=== PATIENT | female | born 1990 | race Caucasian/White ===

== ENCOUNTER → 2016-08-04 | Outpatient (CLI) | payer OTHER ==
[~2016-08-04] MED LIST: CETI10TA10 PO; ESCI10TA17 PO; PEDICHW53; PREN1TAB29
[2016-08-04 11:49] LABS: GTGD 50 Grams
[2016-08-05 14:49] LABS: AFP CONCENTRATION 26.1 NG/ML; AFP MULTIPLE OF MEDIAN 0.84; AFPTS INSULIN DEP DIABETIC? NO; AFPTS MATERNAL WT 160 LBS; ALPHA-FETOPROTEIN RACE CAUCASIAN=W; ESTRIOL MULTIPLE OF MEDIAN 0.77; HISTORY OF NTD NO; INHIBIN A 133 PG/ML; REPEAT SAMPLE? NO; hCG MULTIPLE OF MEDIAN 0.73
== END | disposition home or self-care (01) ==
LOC: C.LAB1850 09:45
PROVIDERS: ATTEND Obstetrics & Gynecology
DX: Z34.83 Encounter for supervision of other normal pregnancy, third trimester (principal)

== ENCOUNTER → 2016-10-27 | Outpatient (CLI) | payer OTHER ==
[2016-10-27 10:09] LABS: HEMATOCRIT 33.7 % (37-47)
[2016-10-27 10:56] LABS: GTGD 50 Grams
[2016-10-27 12:01] LABS: URINE APPEARANCE CLEAR (CLEAR); URINE BILIRUBIN NEG (NEG); URINE COLOR YELLOW; URINE NITRITE NEG (NEG); URINE SPECIFIC GRAVITY 1.011 (1.000-1.030); UROBILINOGEN NEG (NEG)
[2016-10-27 12:05] LABS: MANUAL MICROSCOPIC REQUIRED? NO; REVIEW REQ? NO
== END | disposition home or self-care (01) ==
LOC: C.LAB1850 09:16
PROVIDERS: ATTEND Obstetrics & Gynecology
DX: Z34.83 Encounter for supervision of other normal pregnancy, third trimester (principal)

== ENCOUNTER 2016-12-19 16:32 | Outpatient (CLI) | payer OTHER ==
[~2016-12-19] VITALS: Ht 165.1 cm; Wt 91.2 kg
[~2016-12-19 16:32] MED LIST changes: -CETI10TA10 PO; -ESCI10TA17 PO; -PREN1TAB29
[2016-12-19 17:44] LABS: BASO % 0.2 %; BASO ABS # 0.02 K/uL (0-0.2); HEMATOCRIT 30.5 % (37-47); IG% 0.7 %; LYMPH % 18.7 %; LYMPH ABS # 1.94 K/uL (1.2-3.4); MEAN CELL VOLUME 73.3 fL (80-100); MEAN CORPUSCULAR HEMOGLOBIN 24.3 pg (25-34); MEAN PLATELET VOLUME 11.1 fL (7.4-10.4); MONO % 6.9 %; NEUT % 72.5 %; PLATELET COUNT 243 K/uL (130-400); RED BLOOD COUNT 4.16 M/uL (4.2-5.4)
[2016-12-19 17:54] LABS: MEAN CORPUSCULAR HGB CONC 33.1 g/dl (32-36)
[2016-12-19 18:08] LABS: COMPLETE YES; SPHEROCYTE 1+
[2016-12-19 18:15] VITALS: Ht 165.1 cm; Wt 91.2 kg
[2016-12-19 18:35] LABS: ALKALINE PHOSPHATASE 122 U/L (45-117); ALT/SGPT 17 U/L (12-78); AST/SGOT 28 U/L (15-37); BLOOD UREA NITROGEN 9 mg/dl (7-18); CALCIUM 8.1 mg/dl (8.5-10.1); CARBON DIOXIDE 21 mmol/L (21-32); CHLORIDE 107 mmol/L (98-107); CREATININE 0.71 mg/dl (0.60-1.20); GLUCOSE 80 mg/dl (70-99); POTASSIUM 3.7 mmol/L (3.5-5.1); SODIUM 137 mmol/L (136-145); URIC ACID 6.4 mg/dl (2.6-7.2)
[2016-12-19 19:13] LABS: URINE PROTIEN/CREAT RATIO 0.1 (0-0.2); URINE TOTAL PROTEIN 5.7 mg/dl (0-11.9)
== END 2016-12-19 19:01 | disposition home or self-care (01) ==
LOC: C.LD 16:32 → C.OPB 16:32
PROVIDERS: ATTEND Obstetrics & Gynecology
DX: O16.3 Unspecified maternal hypertension, third trimester (principal); Z3A.35 35 weeks gestation of pregnancy

== ENCOUNTER → 2016-12-20 | Outpatient (CLI) | payer OTHER ==
[~2016-12-20] MED LIST changes: +CETI10TA10 PO; +ESCI10TA17 PO; +PREN1TAB29
[2016-12-20 18:58] LABS: PATIENT HEIGHT 165.1 cm
[2016-12-20 19:24] LABS: CREATININE 0.71 mg/dl (0.6-1.2)
[2016-12-20 19:43] LABS: URINE TOTAL PROTEIN 5.9 mg/dl (0-11.9)
== END | disposition home or self-care (01) ==
LOC: C.LABSPEC 18:53
PROVIDERS: ATTEND Obstetrics & Gynecology
DX: O13.3 Gestational [pregnancy-induced] hypertension without significant proteinuria, third trimester (principal)

== ENCOUNTER → 2016-12-22 | Outpatient (CLI) | payer OTHER | END | disposition home or self-care (01) | LOC: C.LABSPEC 17:44 | PROVIDERS: ATTEND Obstetrics & Gynecology | DX: Z34.83 Encounter for supervision of other normal pregnancy, third trimester (principal) ==

== ENCOUNTER → 2016-12-26 | Outpatient (CLI) | payer OTHER ==
[2016-12-26 17:46] LABS: HEMATOCRIT 32.5 % (37-47); MEAN CELL VOLUME 73.4 fL (80-100); MEAN CORPUSCULAR HEMOGLOBIN 24.2 pg (25-34); MEAN CORPUSCULAR HGB CONC 32.9 g/dl (32-36); MEAN PLATELET VOLUME 12.6 fL (7.4-10.4); PLATELET COUNT 254 K/uL (130-400); RED BLOOD COUNT 4.43 M/uL (4.2-5.4); WHITE BLOOD COUNT 9.55 K/uL (4.8-10.8)
[2016-12-26 18:29] LABS: ALKALINE PHOSPHATASE 141 U/L (45-117); ALT/SGPT 19 U/L (12-78); AST/SGOT 25 U/L (15-37)
== END | disposition home or self-care (01) ==
LOC: C.LAB1850 17:03
PROVIDERS: ATTEND Obstetrics & Gynecology
DX: O13.3 Gestational [pregnancy-induced] hypertension without significant proteinuria, third trimester (principal); Z3A.00 Weeks of gestation of pregnancy not specified

== ENCOUNTER 2016-12-29 15:39 | Inpatient (IN) | payer OTHER ==
[~2016-12-29] VITALS: Ht 165.1 cm; Wt 93.9 kg
[~2016-12-29 15:39] MED LIST changes: -CETI10TA10 PO; -ESCI10TA17 PO; -PREN1TAB29
[2016-12-29] MEDS ORDERED: LACTATED RINGER'S 1000ML 1,000 ML IV SCH (16:53)
[2016-12-29] MEDS ORDERED: LACTATED RINGER'S 1000ML 1,000 ML IV PRN (16:53)
[2016-12-29] MEDS ORDERED: ACETAMINOPHEN 650 MG SUPP PR STA (16:56)
[2016-12-29] MEDS ORDERED: LABETALOL HCL IV 5 MG/ML 20ML IV PRN (17:00)
[2016-12-29] MEDS ORDERED: MAGNESIUM SULFATE / WTR 1,000 ML IV SCH (17:35)
[2016-12-29] MEDS ORDERED: MAGNESIUM SULFATE 4GM / WTR 100ML IV ONE (17:45)
[2016-12-29] MEDS ORDERED: ACETAMINOPHEN 325 MG TAB ONE (17:55)
[2016-12-29 18:01] LABS: BASO % 0.2 %; BASO ABS # 0.02 K/uL (0-0.2); EOS % 1.4 %; HEMATOCRIT 32.2 % (37-47); IG% 0.7 %; LYMPH % 19.7 %; MEAN CORPUSCULAR HEMOGLOBIN 23.1 pg (25-34); MEAN CORPUSCULAR HGB CONC 31.7 g/dl (32-36); MEAN PLATELET VOLUME 12.6 fL (7.4-10.4); MONO % 6.3 %; NEUT % 71.7 %; PLATELET COUNT 245 K/uL (130-400); RED BLOOD COUNT 4.41 M/uL (4.2-5.4); WHITE BLOOD COUNT 12.16 K/uL (4.8-10.8)
[2016-12-29] MEDS ORDERED: ACETAMINOPHEN 325 MG TAB PO STA (18:01)
[2016-12-29 18:38] LABS: ANISOCYTOSIS PRESENT; COMPLETE YES; EOSINOPHIL % 0.9 %; LYMPH ABS # 1.91 K/uL (1.2-3.4); LYMPHOCYTE % 15.7 %; MYELOCYTE % 0.9 %; NEUTROPHILS % 76.4 %
[2016-12-29 18:48] LABS: ALB/GLOB RATIO 0.6 (0.9-2); ALKALINE PHOSPHATASE 138 U/L (45-117); ALT/SGPT 16 U/L (12-78); AST/SGOT 26 U/L (15-37); BLOOD UREA NITROGEN 10 mg/dl (7-18); BUN/CREATININE RATIO 14.4 (10-20); CALCIUM 8.3 mg/dl (8.5-10.1); CARBON DIOXIDE 22 mmol/L (21-32); CHLORIDE 107 mmol/L (98-107); CREATININE 0.69 mg/dl (0.60-1.20); GLUCOSE 57 mg/dl (70-99); POTASSIUM 4.4 mmol/L (3.5-5.1); SODIUM 137 mmol/L (136-145)
[2016-12-29] MEDS ORDERED: CETI10TA10 PO (19:51)
[2016-12-29] MEDS ORDERED: PREN1TAB29 (19:51)
[2016-12-29] MEDS ORDERED: ESCI10TA17 PO (19:51)
[2016-12-29] MEDS ORDERED: BUPIVACAINE 0.25% 30 ML VIAL ONE (20:02)
[2016-12-29] MEDS ORDERED: FENTANYL 2MCG/ML ROPIV 1.25MG/ML 100ML BAG EPI ONE (20:02)
[2016-12-29] MEDS ORDERED: EpHEDrine SULFATE INJ 50 MG/ML AMP ONE (20:02)
[2016-12-29] MEDS ORDERED: FENTANYL CITRATE INJ 50 MCG/1 ML 2 ML VIAL ONE (20:03)
[2016-12-29] MEDS ORDERED: LACTATED RINGER'S 1000ML 500 ML IV PRN ×2 (20:26→21:07)
[2016-12-29] MEDS ORDERED: OXYTOCIN 30 UNITS/500ML NSS IV PRN (20:30)
[2016-12-29] MEDS ORDERED: NALOXONE HCL INJ 1 MG in SODIUM CHLORIDE 0.9% 1000ML 1,000 ML IV PRN ×4 (21:07)
[2016-12-29] MEDS ORDERED: NALBUPHINE HCL INJ 10 MG/ML AMP IV PRN (21:15)
[2016-12-29] MEDS ORDERED: DiphenhydrAMINE HCL 50 MG/ML VIAL IV PRN (21:15)
[2016-12-29] MEDS ORDERED: PROMETHAZINE HCL INJ 25 MG in SODIUM CHLORIDE 0.9% 50ML 50 ML IV PRN (21:15)
[2016-12-29] MEDS ORDERED: ONDANSETRON INJ 2 MG/ML 2 ML VIAL IV PRN (21:15)
[2016-12-29] MEDS ORDERED: NALOXONE HCL INJ 0.4 MG/1 ML VIAL/CARP IV PRN (21:15)
[2016-12-29] MEDS ORDERED: FENTANYL 2MCG/ML ROPIV 1.25MG/ML 100ML BAG EPI PRN (21:15)
[2016-12-29] MEDS ORDERED: EpHEDrine SULFATE INJ 50 MG/ML AMP IV PRN (21:15)
[2016-12-29] MEDS: ESCITALOPRAM OXALATE 10 MG TAB PO SCH (21:24)
--- NOTE | 2016-12-30 00:55 | Vaginal Delivery Summary ---
Vaginal Delivery Summary Patient dilated to complete and pushed to deliver a viable male infant Apgars 8 and 9 via over intact perineum. Mouth and nose bulb suctioned at the perineum. Shoulders and body delivered with ease. vigorous and crying at .Cord clamped at 30 seconds of life. Infant to maternal abdomen and cord doubly clamped and then cut. Cord blood obtained. Placenta delivered spontaneously and intact, 3 vessel cord. Hemostasis achieved with dilute Pitocin and uterine massage.Bladder drained under sterile conditions for [id number] cc of urine.Small right labial separation reapproximated with 4 -0 Vicryl. EBL 300 cc's. Mother and baby stable in recovery. Plan to continue magnesium sulfate seizure prophylaxis and monitor urine output as well as vital signs.
[2016-12-30] MEDS ORDERED: ACETAMINOPHEN/CODEINE 300/30MG TAB PO PRN ×2 (01:00)
[2016-12-30] MEDS ORDERED: HYDROCORTISONE ACETATE 25 MG SUPP PR PRN (01:00)
[2016-12-30] MEDS ORDERED: ACETAMINOPHEN 325 MG TAB PO PRN (01:00)
[2016-12-30] MEDS ORDERED: SUPERCREAM 0.870 % 15GM JAR EXT PRN (01:00)
[2016-12-30] MEDS ORDERED: OXYTOCIN 30 UNITS/500ML NSS IV PRN (01:00)
[2016-12-30] MEDS ORDERED: LANOLIN OINT EXT PRN ×2 (01:00)
[2016-12-30] MEDS ORDERED: DIPHTHERIA/TETANUS/PERTUSSIS 0.5 ML SYR/VIAL IM. ONE (01:00)
[2016-12-30] MEDS ORDERED: BENZOCAINE 20% AER SPR 82.5 GM CAN EXT PRN (01:00)
[2016-12-30] MEDS ORDERED: OXYTOCIN INJ 20 UNITS in LACTATED RINGER'S 1000ML 1,000 ML IV SCH (01:00)
--- NOTE | 2016-12-30 01:08 | Anesthesia Procedure Note ---
Anesthesia Epidural Removal Nt Date & Time Dec 30, 2016 at 01:08 Vital Signs Pain Intensity: 9.0 Notes Mental Status: alert / awake / arousable, participated in evaluation Nausea / Vomiting: adequately controlled Pain: adequately controlled Airway Patency, RR, SpO2: stable & adequate BP & HR: stable & adequate Hydration State: stable & adequate Neuraxial Anesthesia: was administered Anesthetic Complications: no major complications apparent, pt satisfied with anesthetic care Epidural: removed without complications, with tip intact
[2016-12-30] MEDS: IBUPROFEN 600 MG TAB PO PRN ×5 (03:40→22:05)
[2016-12-30 07:42] LABS: HEMATOCRIT 31.3 % (37-47); MEAN CELL VOLUME 73.3 fL (80-100); MEAN CORPUSCULAR HEMOGLOBIN 23.4 pg (25-34); MEAN CORPUSCULAR HGB CONC 31.9 g/dl (32-36); MEAN PLATELET VOLUME 12.3 fL (7.4-10.4); PLATELET COUNT 208 K/uL (130-400); RED BLOOD COUNT 4.27 M/uL (4.2-5.4); WHITE BLOOD COUNT 14.31 K/uL (4.8-10.8)
[2016-12-30] MEDS: CETIRIZINE HCL 10 MG TAB PO SCH (07:47)
[2016-12-30] MEDS: DOCUSATE SODIUM 100 MG CAP PO SCH ×2 (07:47→20:30)
[2016-12-30 08:15] LABS: BUN/CREATININE RATIO 8.1 (10-20); CALCIUM 7.1 mg/dl (8.5-10.1); CREATININE 0.72 mg/dl (0.60-1.20)
[2016-12-30 08:17] LABS: ALB/GLOB RATIO 0.6 (0.9-2)
[2016-12-30] MEDS ORDERED: NURSING VERBAL MED ORDER ONE (15:15)
[2016-12-30 16:45] VITALS: BP 118/80; PULSE 73; TEMP 36.8; O2SAT 99
[2016-12-30 19:55] VITALS: BP 116/76; PULSE 81; TEMP 36.8; O2SAT 99
[2016-12-30] MEDS: ESCITALOPRAM OXALATE 10 MG TAB PO SCH (20:30)
[2016-12-30 23:10] VITALS: BP 132/88; PULSE 76; TEMP 36.9; O2SAT 99
[2016-12-31 03:20] VITALS: BP 118/79; PULSE 72; TEMP 36.9; O2SAT 97
[2016-12-31] MEDS: IBUPROFEN 600 MG TAB PO PRN ×3 (06:13→19:22)
--- NOTE | 2016-12-31 06:45 | OB/GYN Progress Note ---
SHEARING SHED HAND Progress Note Date of Service Dec 31, 2016. Subjective conversation w/ patient, physical exam, chart review, lab review Ambulation: ambulating normally Voiding: no voiding problems (says no difficulty s/p del valle removal last night) Passing Gas: Yes (and (+) BM) Diet Tolerance: Regular Diet Lochia: Small Feeding Type: Bottle Feeding (says wearing tight bra) Pain: Notes low abd cramping, denies pain Review of Systems Constitutional: No fever, No chills Respiratory: No cough Cardiac: No chest pain Abdomen: No nausea, No vomiting, No diarrhea Female : No dysuria Objective Vital Signs Date Time Temp Pulse Resp B/P (MAP) Pulse Ox O2 Delivery O2 Flow Rate FiO2 12/31/16 03:20 36.9 72 16 118/79 (92) 97 Room Air 12/30/16 23:10 99 Room Air 12/30/16 23:10 36.9 76 20 132/88 (103) 99 Room Air 12/30/16 19:55 36.8 81 18 116/76 (89) 99 Room Air 12/30/16 16:45 36.8 73 18 118/80 (93) 99 Room Air 12/30/16 16:45 99 Room Air Physical Exam General Appearance: WELL-APPEARING, WD/WN, NO APPARENT DISTRESS Respiratory/Chest: lungs clear, normal breath sounds Cardiovascular: regular rate, rhythm, no murmur Abdomen: normal bowel sounds, non tender, soft Fundus: Firm, Relation to Umbilicus (approx two down) Extremities: normal range of motion, non-tender, no pedal edema, no calf tenderness Laboratory Results Last 24 Hours Test 12/30/16 07:16 White Blood Count 14.31 K/uL Red Blood Count 4.27 M/uL Hemoglobin 10.0 g/dL Hematocrit 31.3 % Mean Corpuscular Volume 73.3 fL Mean Corpuscular Hemoglobin 23.4 pg Mean Corpuscular Hemoglobin Concent 31.9 g/dl RDW Standard Deviation 38.7 fL RDW Coefficient of Variation 14.4 % Platelet Count 208 K/uL Mean Platelet Volume 12.3 fL Nucleated RBC Absolute Count (auto) 0.02 K/uL Nucleated Red Blood Cells % 0.1 % Sodium Level 137 mmol/L Potassium Level 4.0 mmol/L Chloride Level 105 mmol/L Carbon Dioxide Level 23 mmol/L Anion Gap 9.0 mmol/L Blood Urea Nitrogen 6 mg/dl Creatinine 0.72 mg/dl Est Creatinine Clear Calc Drug Dose 131.8 ml/min Estimated GFR () 132.1 Estimated GFR (Non- 114.0 BUN/Creatinine Ratio 8.1 Random Glucose 79 mg/dl Calcium Level 7.1 mg/dl Total Bilirubin 0.2 mg/dl Aspartate Amino Transf (AST/SGOT) 26 U/L Alanine Aminotransferase (ALT/SGPT) 13 U/L Alkaline Phosphatase 122 U/L Total Protein 5.7 gm/dl Albumin 2.2 gm/dl Globulin 3.5 gm/dl Albumin/Globulin Ratio 0.6 Assessment and Plan Post- Day Number: 2 Continue Routine Care: 26yo s/p , now PPD #2. - Blood type O pos. GBS negative. Rubella immune. - Vital signs reviewed and stable. Hx gestational HTN, received magnesium here. Yest (07Jul) received single dose labetalol 10 mg IV for HTN. Subsequent BP controlled without additional anti-HTN rx. - Brief del valle yesterday. Voided without difficulty since. - Cramping controlled with ibuprofen. - No leg swelling or tenderness on calf palpation. Encourage ambulation. - Pt is bottle feeding. Says wearing tight bra. - Hemoglobin: 10.2, 10.0. Continue to monitor clinically. - Continue routine post-vaginal delivery care. - Pt agreed with above plan, all current questions answered. Jose Brandt MD, PGY1 Ict Help Desk Officer Physician Supervision Note: I was present with Dr. Brandt during the history and exam. I discussed the case with the resident and agree with the findings and plan as documented in the note. Any exceptions or clarifications are listed here: [None] Documented By: Juancarlos Ferguson Resident Tracking Resident Involvement: Resident Care Provided Care Provided: OB Delivery (morning rounds)
[2016-12-31 07:30] VITALS: BP 124/87; PULSE 67; TEMP 36.9
[2016-12-31] MEDS: DOCUSATE SODIUM 100 MG CAP PO SCH ×2 (08:20→19:21)
[2016-12-31] MEDS: CETIRIZINE HCL 10 MG TAB PO SCH (08:20)
[2016-12-31 15:15] VITALS: BP 121/85; PULSE 64; TEMP 37
[2016-12-31 19:15] VITALS: BP 121/76; PULSE 83; TEMP 37; O2SAT 98
[2016-12-31] MEDS: ESCITALOPRAM OXALATE 10 MG TAB PO SCH (20:37)
[2016-12-31 23:00] VITALS: BP 129/81; PULSE 77; TEMP 36.8; O2SAT 98
[2017-01-01] MEDS: IBUPROFEN 600 MG TAB PO PRN (06:21)
[2017-01-01 07:33] VITALS: BP 135/92; PULSE 65; TEMP 36.5
--- NOTE | 2017-01-01 08:52 | Progress Note ---
Subjective Jan 01, 2017. Subjective conversation w/ patient, physical exam Ambulation: ambulating normally Voiding: no voiding problems (says no difficulty s/p del valle removal last night) Passing Gas: Yes Diet Tolerance: Regular Diet Lochia: Moderate Feeding Type: Breast Feeding Pain: controlled Review of Systems Constitutional: No problem reported Respiratory: No problem reported Cardiac: No problem reported Breast: No problem reported Abdomen: No problem reported Female : No problem reported Objective Vital Signs Date Time Temp Pulse Resp B/P (MAP) Pulse Ox O2 Delivery O2 Flow Rate FiO2 01/01/17 07:40 Room Air 01/01/17 07:33 36.5 65 18 135/92 (106) Room Air 12/31/16 23:00 36.8 77 18 129/81 (97) 98 Room Air 12/31/16 23:00 Room Air 12/31/16 19:15 37.0 83 18 121/76 (91) 98 Room Air 12/31/16 19:15 Room Air 12/31/16 15:15 Room Air 12/31/16 15:15 37.0 64 20 121/85 (97) Room Air Physical Exam General Appearance: WELL-APPEARING, NO APPARENT DISTRESS Respiratory/Chest: no respiratory distress Cardiovascular: regular rate, rhythm Abdomen: non tender, soft Fundus: Firm Extremities: normal inspection Assessment and Plan Problem List Medical Problems: (1) Substernal chest pain Status: Acute Post- Day#: 2 Continue Routine Care: PPD#2 doing well. Discharge home today. Discussed discharge instructions. Followup in office in 6w.
--- NOTE | 2017-01-01 08:54 | Discharge Instructions ---
Discharge Instructions Date of Service Jan 01, 2017. Admission Reason for Admission: Check Blood Pressure Discharge Discharge Diagnosis / Problem: s/p vaginal delivery Discharge Goals Goal(s): Routine recovery after delivery Activity Recommendations Activity Limitations: per Instructions/Follow-up section . Instructions / Follow-Up Instructions / Follow-Up ACTIVITY RECOMMENDATIONS: * Gradual return to full activity over the next 2-3 weeks. * No lifting - nothing heavier than baby over the next 2-3 weeks. * Do not engage in vigorous exercise, sexual activity or sports until cleared by your physician. * Do not drive or operate any motorized equipment until cleared by your physician. * You may shower/bathe daily. MEDICATIONS: For discomfort or pain, you may use Acetaminophen (Tylenol), Ibuprofen (Advil), or Naproxen (Aleve) following the package directions. For constipation you may use Colace following the package directions. BREAST CARE: If you are not breast feeding: * Wear a supportive bra 24 hours a day for one to two weeks. * Avoid stimulating your breasts and nipples as much as possible during the first few weeks after delivery. * When taking a shower, have the warm water hit your back, not breasts. * When your breasts feel full, apply ice packs. Usually three to four times a day helps ease the discomfort. * Take a mild pain medication (Tylenol / Motrin) when you are uncomfortable. If breast feeding: * Use breast milk to lubricate nipples. Lansinoh cream may be used for sore nipples. You do not need to remove cream prior to breast feeding. If using a different brand of cream, check the label for directions regarding removal of cream prior to nursing. * Wear a supportive bra. * If having problems with breasts or breast feeding, call a solution consultant or your health care provider. EPISIOTOMY CARE: After delivery, if you have an episiotomy (stitches), the following steps will ease discomfort and aid healing. * For the first 24 hours after delivery, place ice packs next to your episiotomy to help reduce swelling. * After the first 24 hour-period, sitz baths, either portable or in the tub, are suggested. A shower with a shower arm sprayed over the episiotomy may be comforting. * Lore care should be done after each voiding and bowel movement. Squirt warm water from a plastic bottle over the perineum (region of the body between the anus and urinary opening) and pat dry. * Use Dermoplast to ease discomfort. Shake container. Vaughn directly over the episiotomy. Place a Tucks on a clean sanitary pad next to your episiotomy. SPECIAL CARE INSTRUCTIONS: When you are discharged from the hospital, it is important for you to follow the instructions listed below: * During the first week at home, you should be able to care for yourself and your baby. In addition, the usual light household activities are encouraged. * Limit your activities to the way you feel. Do not try to clean the house or move furniture. Be sensible. * If you actively engage in sports and have done so up until the time of your delivery, you may resume these activities as soon as you feel able. This may take up to one month or even longer. Use good judgment. * Continue to take your vitamins for at least six weeks after the of your baby. * Your diet need not be limited unless you were on a special diet before your delivery. Breast-feeding mothers need around 2500 calories per day and at least 64-80 ounces of fluid per day (8 to 10 glasses). * You should eat foods from the four major food groups. Crash diets or fad diets are to be avoided. Eating lean meats, fresh fruits and vegetables, low-fat dairy products, high fiber foods and a regular exercise program, will help you get back to your pre- weight without putting your health at risk. * Constipation is sometimes a problem after delivery. Take a mild laxative as needed. If breast feeding, Milk of Magnesia is acceptable to use. You may use a suppository or Fleets enema if no episiotomy. * A daily shower or tub bath is suggested. Be sure to thoroughly and gently dry the perineum. * A bloody vaginal discharge will usually continue until around four weeks post . A small amount of bleeding may continue for as long as six weeks. Vaginal discharge changes from the bright red bleeding after delivery to pink then brownish and finally yellowish-pink before becoming white and disappearing. * Bleeding may increase with activity. Your first period may come in 4-8 weeks. If you are breast feeding, your period may be delayed even longer. * [place] (sex) can begin whenever both you and your partner feel comfortable and do not have any form of genital infection. It is recommended that you wait at least six weeks for internal and external healing to occur. If you have questions, please talk to your health care practitioner. A condom should be used to prevent infection and . * Foreplay, gentle intercourse and lubrication is very important the first several times to prevent pain. A water-based lubricant such as K-Y jelly or Astroglide may be used. * If you have RH negative blood and your baby is RH positive, you will receive RHOGAM by injection prior to discharge. The nurse will give you a card to keep with you that has the date and place that you received RHOGAM after delivery. * During your care, you had a Rubella screen done to check for the presence of rubella antibodies in your blood. If your test was negative, you will receive a Rubella vaccine prior to discharge. This vaccine may cause a fever, soreness at the injection site and flu-like symptoms. If these symptoms persist, notify your health care practitioner. is not advised for one month after a Rubella vaccine. * Verbalizes understanding of car seat law as reviewed with patient nursing. * Car Seat hand-out given and reviewed with patient by nursing. * Shaken baby information reviewed with patient by nursing. Call you doctor if: * Heavy bleeding (saturating several pads an hour) or passing clots the size of your fist. * A fever >101 degrees F (38.3 degrees C) on two occasions four hours apart and /or chills. * Unusual pain in the pelvic or vaginal areas. * "Baby Blues" lasting longer than two weeks. If you have any questions or concerns, call your health care practitioner at . FOLLOW UP VISIT: * Please call the office at to schedule a 6 week examination. It is important you keep this appointment. It is important for you to make arrangements for either yearly or twice yearly check-ups thereafter. Current Hospital Diet Patient's current hospital diet: Regular OB Diet Discharge Diet Recommended Diet: Regular Diet Pending Studies Studies pending at discharge: no Medical Emergencies . Who to Call and When: Medical Emergencies: If at any time you feel your situation is an emergency, please call 911 immediately. . Non-Emergent Contact Non-Emergency issues call your: Primary Care Provider, Change Coordinator . . "Provider Documentation" section prepared by Radha Aponte. . VTE Core Measure Inpt VTE Proph given/why not?: Treatment not indicated
[2017-01-01] MEDS: CETIRIZINE HCL 10 MG TAB PO SCH (08:59)
[2017-01-01] MEDS: DOCUSATE SODIUM 100 MG CAP PO SCH (08:59)
[2017-01-01 10:22] VITALS: BP_DIAS 92; PULSE 65; TEMP 36.5
== END 2017-01-01 11:10 | disposition home or self-care (01) | DRG 775 ==
LOC: C.LD 15:39 → C.OPB 15:39 → C.LD 16:56 → C.OPB 16:56 → C.OBG 12-30 16:51
PROVIDERS: ADMIT Obstetrics & Gynecology; ATTEND Obstetrics & Gynecology
PROC: 10907ZC Drainage of Amniotic Fluid, Therapeutic from Products of Conception, Via Natural or Artificial Opening (ICD-10-PCS; principal; 2016-12-30)
PROC: 0HQ9XZZ Repair Perineum Skin, External Approach (ICD-10-PCS; principal; 2016-12-30)
PROC: 0U7C7ZZ Dilation of Cervix, Via Natural or Artificial Opening (ICD-10-PCS; principal; 2016-12-30)
PROC: 10E0XZZ Delivery of Products of Conception, External Approach (ICD-10-PCS; principal; 2016-12-30)
PROC: 3E033VJ Introduction of Other Hormone into Peripheral Vein, Percutaneous Approach (ICD-10-PCS; principal; 2016-12-30)
DX: O14.14 Severe pre-eclampsia complicating childbirth (principal); Z37.0 Single live birth; O13.4 Gestational [pregnancy-induced] hypertension without significant proteinuria, complicating childbirth; O99.214 Obesity complicating childbirth; E66.9 Obesity, unspecified; O99.02 Anemia complicating childbirth; O70.0 First degree perineal laceration during delivery; D64.9 Anemia, unspecified; O99.344 Other mental disorders complicating childbirth; F32.9 Major depressive disorder, single episode, unspecified; F41.9 Anxiety disorder, unspecified; Z79.899 Other long term (current) drug therapy; Z3A.37 37 weeks gestation of pregnancy; Z68.34 Body mass index [BMI] 34.0-34.9, adult

== ENCOUNTER → 2017-02-14 | Outpatient (CLI) | payer OTHER ==
[~2017-02-14] MED LIST changes: +CETI10TA10 PO; +ESCI10TA17 PO; -PEDICHW53
== END | disposition home or self-care (01) ==
LOC: C.PAPS 08:14
PROVIDERS: ATTEND Obstetrics & Gynecology
DX: Z12.4 Encounter for screening for malignant neoplasm of cervix (principal)